=== PATIENT | female | born 1975 | race Caucasian/White ===

== ENCOUNTER 2017-04-15 08:19 | Outpatient (CLI) | payer BC ==
--- NOTE | 2017-04-24 13:41 | MMO ---
BILATERAL DIGITAL SCREENING MAMMOGRAMS: Date: 04/15/17 HISTORY: 41-year-old female presents for digital screening mammogram. COMPARISON: 12/15/13. FINDINGS: This patient's mammogram was interpreted with the assistance of computer-aided detection. Scattered areas of fibroglandular density are noted bilaterally. Stable left breast parenchymal dens ity asymmetry. IMPRESSION: BIRADS 2: Benign Finding(s) Continue routine screening. POS: [facility]
== END 2017-04-15 08:20 | disposition home or self-care (01) ==
LOC: SCSMAMMO 08:19
PROVIDERS: ATTEND Family Medicine
DX: Z12.31 Encounter for screening mammogram for malignant neoplasm of breast (principal)
CPT/HCPCS: 77067; G0202

== ENCOUNTER 2018-04-05 11:02 | Outpatient (CLI) | payer BC ==
--- NOTE | 2018-04-05 14:19 | ULT ---
PELVIC ULTRASOUND: HISTORY: Right lower quadrant pain. Removal of uterus and left ovary. TECHNIQUE: Transabdominal imaging of the pelvis is performed. The right ovary is interrogated with quigley scale, color, Doppler imaging, and spectral Doppler waveform analysis. FINDINGS: A uterus is not appreciated. Left adnexa is unremarkable. NO masses, cystic lesions, or free fluid. In the right adnexa, there is a 2.0 x 1.6 x 2.0 cm anechoic focus likely representing a cyst. Limite d evaluation of the overall ovary. The right ovary measures at least 4.8 x 3.0 x 1.8 cm. There is a complex hypoechoic focus in the right ovary measuring 1.6 x 1.3 x 1.2 cm. There is no free fluid. OVARIAN DOPPLER: There is vascular flow to the right ovary. IMPRESSION: Complex hypoechoic and simple cystic lesion associated with the right ovary. Followup ultrasound in 4-6 weeks is recommended to ensure resolution. POS: [facility]
== END 2018-04-05 11:03 | disposition home or self-care (01) ==
LOC: SCSULT 11:02
PROVIDERS: ATTEND Family Medicine
DX: R10.31 Right lower quadrant pain (principal); N83.201 Unspecified ovarian cyst, right side
CPT/HCPCS: 76856

== ENCOUNTER 2018-04-11 16:29 | Emergency (ER) | payer BC ==
[~2018-04-11 16:29] MED LIST: Iopamidol 370 76% 100 ML VIAL ONE
[2018-04-11 17:10] LABS: #Basophils 0.1 thou/uL (0.0-0.2); #Eosinphils 0.1 thou/uL (0.0-0.7); #Lymphocytes 1.6 thou/uL (1.20-3.40); #Monocytes 0.7 thou/uL (0.11-0.59); %Basophils 0.7 % (0.0-1.0); %Eosinophils 0.7 % (0.0-10.0); %Monocytes 5.6 % (0.0-10.0); Hemoglobin 13.2 g/dL (12.0-16.0); Mean Corpuscular HGB CONC 32.6 g/dL (32.0-36.0); Mean Corpuscular Hemoglobin 29.9 pg (27.0-31.0); Mean Corpuscular Volume 91.7 fL (78.0-98.0); Mean Platelet Volume 8.5 fL (7.4-10.4); Platelet Count 151 thou/uL (130-400); RBC Distribution Width 12.3 % (11.5-14.5); White Blood Cell (WBC) Count 12.5 thou/uL (4.8-10.8)
[2018-04-11 17:18] LABS: BHCG - Serum Negative (NEGATIVE); Pregs Control Background? CLEAR/WHITE (CLR/WHITE); Pregs Control Bar Appear? YES (CONTROL BAR)
[2018-04-11 17:25] LABS: ALT (SGPT) 15 U/L (8-55); AST (SGOT) 15 U/L (5-34); Albumin 4.4 g/dL (3.5-5.0); Alkaline Phosphatase 56 U/L (40-150); Anion Gap 15 mmol/L (10-20); BUN (Urea Nitrogen) 13 mg/dL (7.0-18.7); Bilirubin, Total 0.8 mg/dL (0.2-1.2); Calc. Creatinine Clearance 0 mL/min (70-130); Calcium 9.3 mg/dL (7.8-10.44); Carbon Dioxide 22 mmol/L (22-29); Chloride 107 mmol/L (98-107); Estimated GFR-MDRD 84; Globulin 2.7 g/dL (2.4-3.5); Glucose 86 mg/dL (70-105); Lipase 38 U/L (8-78); Potassium 3.8 mmol/L (3.5-5.1); Protein, Total 7.1 g/dL (6.0-8.3); Sodium 140 mmol/L (136-145)
[2018-04-11 17:27] LABS: Bilirubin Negative (Negative); Blood, Urine Negative (Negative); Clarity Clear (Clear); Glucose, Urine (Dipstick) Negative (Negative); Leukocyte Negative (Negative); Nitrite Negative (Negative); Protein, Urine (Dipstick) Negative (Neg-Trace); Specific Gravity, Urine 1.025 (1.005-1.030); Urobilinogen 0.2 mg/dL (0.2-1.0)
[2018-04-11] MEDS ORDERED: Ketorolac Tromethamine 30 MG/ML VIAL ONE (17:27)
--- NOTE | 2018-04-11 18:35 | CT ---
CT ABDOMEN AND PELVIS WITH IV CONTRAST: History: Abdominal pain. Prior colon surgery. FINDINGS: Lung bases are clear. The liver, spleen, kidneys, adrenal glands, and pancreas are unremarkable. At t he right adnexa, a rounded cystic lesion measures up to 3.4 cm. Physiologic amount of free fluid in t he cul-de-sac. Hyperdense foci in the right lower quadrant had the appearance of hemostasis clips. Lack of oral contrast limits evaluation of the bowel. There are post-operative changes of the left co rissa. In the left upper quadrant at the expected location of the splenic flexure, there is circumferen tial wall thickening of the colon and subtle stranding of adjacent fat. Small hyperdense focus at the superior margin of the abnormal loop of colon may represent an inflamed diverticulum. Left colon is not well delineated and may be surgically absent. IMPRESSION: 1. Post-operative changes of the colon. Focal area of wall thickening and the appearance of inflammat ion in the left upper quadrant at the expected location of the splenic flexure. Cause is not evident. Clinical correlation regarding other signs and symptoms of inflammation/infection versus neoplasm is required. 2. Right ovarian cyst, 3.4 cm. POS: [facility]
== END 2018-04-11 18:07 | disposition home or self-care (01) ==
LOC: SCSER 16:29
DX: K57.32 Diverticulitis of large intestine without perforation or abscess without bleeding (principal)
CPT/HCPCS: 74177; 80053; 81003; 83690; 84703; 85025; 96361; 96374; J1885

== ENCOUNTER 2018-04-16 13:10 | Outpatient (CLI) | payer BC ==
--- NOTE | 2018-04-16 18:54 | MMO ---
BILATERAL SCREENING MAMMOGRAM: 04/16/18 COMPARISON: 04/15/17, 12/15/13 exams. HISTORY: Annual screening study. The films are reviewed with the assistance of computer aided detection. Scattered fibroglandular changes of both breasts are noted. Intramammary lymph node is seen on the le ft. Also a small intramammary node seen on the right. Some minimal asymmetry to the upper outer right breast probably is just related to superimposition. S ubtly more prominent than it has been on previous exams. There are no suspicious calcifications or ot her signs of malignancy. IMPRESSION: BIRADS 0: Incomplete: Need Additional Imaging Evaluation and/or Prior Mammograms for Comparison. Further imaging required. In this case, focal spot views of the area marked within the right breast. POS: [facility]
== END 2018-04-16 13:11 | disposition home or self-care (01) ==
LOC: SCSMAMMO 13:10
PROVIDERS: ATTEND Family Medicine
DX: Z12.31 Encounter for screening mammogram for malignant neoplasm of breast (principal)
CPT/HCPCS: 77067

== ENCOUNTER 2018-04-26 14:13 | Outpatient (CLI) | payer BC | END 2018-04-26 14:14 | disposition home or self-care (01) | LOC: BICULT 14:13 | PROVIDERS: ATTEND Family Medicine | DX: R92.2 Inconclusive mammogram (principal) | CPT/HCPCS: G0279 ==

== ENCOUNTER 2018-05-17 09:03 | Outpatient (CLI) | payer BC ==
--- NOTE | 2018-05-17 11:29 | ULT ---
TRANSABDOMINAL TRANSVAGINAL PELVIC ULTRASOUND: INDICATION: Followup right ovarian cyst. TECHNIQUE: German scale, color Doppler, and spectral Doppler images were obtained of the via a transabdominal meehan svaginal approach. Comparisons are made with prior pelvic ultrasound dated 04/05/[address] of e abdomen and pelvis dated 04/11/2018. FINDINGS: The more complex-appearing right ovarian cyst has decreased in its complexity. There is a simple-lexus earing follicular cyst within the right ovary measuring 1 x 1 x 0.9 cm and 0.9 x 0.6 x 0.5 cm. Previ ously, the prominent right ovarian cystic abnormalities measured 2 and 1.6 cm respectively. There is normal flow to the right ovary. The left ovary is surgically absent. The uterus is surgically absent. There is no free fluid demonstrated. There is a new cystic collection seen within the upper vaginal vault measuring 1.7 cm which has the a ppearance of a lobulated cyst. This was not appreciated on the prior pelvic ultrasound nor on the CT examination. Differential considerations for this finding include a small anterior vaginal wall cys t such as a Freeman's duct cyst or mullerian duct remnant was not well seen on the prior exams. Alte rnatively, this may reflect loculated fluid seen within the lower pelvis has the appearance of being within the upper vagina. If the patient has undergone a partial hysterectomy, findings can be seen w ith nabothian cysts. Recommend correlation with clinical examination and history. IMPRESSION: 1. Resolution of the complex-appearing right ovarian follicular cyst. There are simple-appearing fo llicular cysts within the right ovary measuring 1 and 0.9 cm respectively. 2. Interval development of a 1.7 cm lobulated cystic lesion seen within the upper vagina. Different ial considerations as above. Recommendations as above. 3. Hysterectomy, left oophorectomy. 4. No free fluid. POS: [facility]
== END 2018-05-17 09:04 | disposition home or self-care (01) ==
LOC: SCSULT 09:03
PROVIDERS: ATTEND Family Medicine
DX: N83.291 Other ovarian cyst, right side (principal); N89.8 Other specified noninflammatory disorders of vagina; N83.01 Follicular cyst of right ovary; Z90.710 Acquired absence of both cervix and uterus; Z90.721 Acquired absence of ovaries, unilateral
CPT/HCPCS: 76856

== ENCOUNTER 2023-07-23 07:30 | Outpatient (CLI) | payer BC | END 2023-07-23 07:31 | disposition home or self-care (01) | LOC: SCSMRI 07:30 | PROVIDERS: ATTEND Family Medicine | DX: R16.0 Hepatomegaly, not elsewhere classified (principal); K86.2 Cyst of pancreas; D18.09 Hemangioma of other sites | CPT/HCPCS: 72158; 74183 ==